=== PATIENT | male | born 1955 | race Two or more races ===

== ENCOUNTER 2016-04-06 19:55 | Inpatient (IN) | payer MEDICARE, MEDICAID ==
[~2016-04-06] VITALS: Ht 170.2 cm; Wt 96.7 kg
[2016-04-06 20:32] LABS: Basophils # (auto) 0 uL; Basophils % (auto) 0.3 % (0.0-2.0); Eosinophils # (auto) 0.5 uL; Eosinophils % (auto) 6.6 % (0.0-7.0); Hematocrit 36.3 % (41.0-53.0); Lymphocytes # (auto) 1.5 uL; Lymphocytes % (auto) 21.5 % (10.0-50.0); Mean Corpuscular Hemoglobin 31.9 pg (28.0-32.0); Mean Corpuscular Volume 96.8 fL (80.0-100.0); Mean Platelet Volume 7.4 fL (7.4-10.4); Monocytes # (auto) 0.5 uL; Monocytes % (auto) 7.2 % (0.0-12.0); Neutrophils # (auto) 4.6 uL; Neutrophils % (auto) 64.4 % (37.0-80.0); Nucleated Red Blood Cells % 2.6 %; Platelet Count (auto) 283 10^3/uL (140-450); Red Cell Distribution Width 13.2 % (11.6-16.0); White Blood Cell 7.2 10^3/uL (4.4-10.8)
[2016-04-06 20:54] LABS: Albumin 3.1 g/dL (3.4-5.0); Calcium 7.5 mg/dL (8.5-10.1); Magnesium 2.1 mg/dL (1.6-2.6); Potassium 3.5 mmol/L (3.5-5.1)
[2016-04-06 20:57] LABS: Bilirubin, Total 0.3 mg/dL (0.2-1.0); Total Protein 6.8 g/dL (6.4-8.2)
[2016-04-06] MEDS ORDERED: ASPirin 81 mg TAB PO ONE (21:00)
[2016-04-06] MEDS ORDERED: ASPirin 81 mg TAB ONE (21:05)
[2016-04-06] MEDS ORDERED: NITROGLYCERIN 0.4 MG SL TAB SL PRN (23:30)
[2016-04-06] MEDS ORDERED: LACTULOSE 20Gm/30ML SOLN PO PRN (23:30)
[2016-04-06] MEDS ORDERED: MORPHINE SULF INJ 2 MG/ML SYRINGE 1ML IV PRN (23:30)
[2016-04-06] MEDS ORDERED: DEXTROSE (50%) 50ML SYRG IV PRN (23:30)
[2016-04-07] VITALS (7 sets, daily range): BP systolic 101–133; BP diastolic 51–68
[2016-04-07] MEDS: SODIUM CHLOR 0.9% PF (SALINE LOCK) 10ML VIAL IV SCH ×3 (05:59→22:57)
[2016-04-07] MEDS: ACCU-CHEK COMFORT CURVE STRIP VI SCH ×4 (06:17→17:44)
[2016-04-07] MEDS: InsuLIN REG 1unit/0.01ml Soln (100units/ml) SC SCH ×4 (06:22→17:47)
[2016-04-07 07:18] LABS: Albumin 3.2 g/dL (3.4-5.0); BUN/Creatinine Ratio 6.3; Bilirubin, Total 0.3 mg/dL (0.2-1.0); Calcium 7.9 mg/dL (8.5-10.1); Potassium 4.2 mmol/L (3.5-5.1); Total Protein 6.4 g/dL (6.4-8.2)
[2016-04-07 07:43] LABS: Basophils # (auto) 0 uL; Basophils % (auto) 0.6 % (0.0-2.0); Eosinophils # (auto) 0.6 uL; Eosinophils % (auto) 7.6 % (0.0-7.0); Hematocrit 34.7 % (41.0-53.0); Hemoglobin 11.3 g/dL (13.5-17.5); Lymphocytes # (auto) 1.2 uL; Lymphocytes % (auto) 17.2 % (10.0-50.0); Mean Corpuscular Hemoglobin 31.7 pg (28.0-32.0); Mean Corpuscular Hgb Conc. 32.6 g/dL (32.0-36.0); Mean Corpuscular Volume 97.3 fL (80.0-100.0); Mean Platelet Volume 7.6 fL (7.4-10.4); Monocytes # (auto) 0.6 uL; Monocytes % (auto) 8.7 % (0.0-12.0); Neutrophils # (auto) 4.8 uL; Neutrophils % (auto) 65.9 % (37.0-80.0); Platelet Count (auto) 262 10^3/uL (140-450); Red Cell Distribution Width 12.9 % (11.6-16.0); White Blood Cell 7.3 10^3/uL (4.4-10.8)
[2016-04-07] MEDS: PANTOPRAZOLE SODIUM 40 MG/10 ML VIAL IV SCH (09:48)
[2016-04-07] MEDS: NITROGLYCERIN 0.2MG/HR TOPICAL PATCH TD SCH (09:48)
[2016-04-07] MEDS: ENOXAPARIN SOD 30 MG/0.3 ML SYRINGE SC SCH (09:48)
[2016-04-07] MEDS: ISOSORBIDE MONONITRATE 60 MG TAB PO SCH (09:50)
[2016-04-07] MEDS: CLOPIDOGREL BISULFATE 75 MG TAB PO SCH (09:50)
[2016-04-07] MEDS: ASPirin 81 mg TAB PO SCH (09:52)
[2016-04-07] MEDS: METOPROLOL TARTRATE 25 MG TAB PO SCH ×2 (09:54→22:58)
[2016-04-07] MEDS: SEVELAMER 800 MG TAB PO SCH ×3 (09:58→17:44)
[2016-04-07] MEDS ORDERED: amLODIPine BESYLATE 5 MG TAB PO SCH (10:00)
[2016-04-07] MEDS ORDERED: LOSARTAN POTASSIUM 25 MG TAB PO SCH (10:00)
[2016-04-07] MEDS ORDERED: ENALAPRIL MALEATE 10 MG TAB PO SCH (10:00)
[2016-04-07] MEDS ORDERED: SODIUM CHL 0.9% 1000 ML BAG XX ONE (12:45)
[2016-04-07] MEDS ORDERED: ATORVASTATIN 20 MG TAB PO SCH (22:00)
[2016-04-08] MEDS: ACCU-CHEK COMFORT CURVE STRIP VI SCH ×4 (00:38→18:02)
[2016-04-08] MEDS: InsuLIN REG 1unit/0.01ml Soln (100units/ml) SC SCH ×4 (00:46→18:15)
[2016-04-08 05:00] VITALS: BP 114/66
[2016-04-08] MEDS: SODIUM CHLOR 0.9% PF (SALINE LOCK) 10ML VIAL IV SCH ×2 (06:01→15:26)
[2016-04-08 08:00] VITALS: BP 124/69
[2016-04-08] MEDS: SEVELAMER 800 MG TAB PO SCH ×3 (08:00→18:01)
[2016-04-08] MEDS ORDERED: ADENOSINE 81 MG in GIVE UN-DILUTED 0 ML IV ONE (08:15)
[2016-04-08 09:25] VITALS: BP 124/69
[2016-04-08] MEDS: ENOXAPARIN SOD 30 MG/0.3 ML SYRINGE SC SCH (10:00)
[2016-04-08] MEDS: ASPirin 81 mg TAB PO SCH (10:00)
[2016-04-08] MEDS: ISOSORBIDE MONONITRATE 60 MG TAB PO SCH (10:00)
[2016-04-08] MEDS: NITROGLYCERIN 0.2MG/HR TOPICAL PATCH TD SCH (10:00)
[2016-04-08] MEDS ORDERED: ENALAPRIL MALEATE 10 MG TAB PO SCH (10:00)
[2016-04-08] MEDS ORDERED: amLODIPine BESYLATE 5 MG TAB PO SCH (10:00)
[2016-04-08] MEDS: METOPROLOL TARTRATE 25 MG TAB PO SCH (10:00)
[2016-04-08] MEDS ORDERED: SEVE800T8 PO (11:58)
[2016-04-08] MEDS ORDERED: ATOR80TA PO (11:58)
[2016-04-08] MEDS ORDERED: AMLO10TA2 PO (11:58)
[2016-04-08] MEDS ORDERED: PANT40TA2 PO (11:58)
[2016-04-08] MEDS ORDERED: CLOP75TA41 PO (11:58)
[2016-04-08] MEDS ORDERED: LEVEMIR SC (11:58)
[2016-04-08 13:42] VITALS: BP 120/72
[2016-04-08 13:56] VITALS: BP 120/72
[2016-04-08 17:20] VITALS: BP 130/70
[2016-04-08] MEDS: CLOPIDOGREL BISULFATE 75 MG TAB PO SCH (18:02)
[2016-04-08] MEDS: PANTOPRAZOLE SODIUM 40 MG/10 ML VIAL IV SCH (18:02)
== END 2016-04-08 20:15 | disposition home or self-care (01) | DRG 302 ==
LOC: EDBD 19:55 → ER 20:00 → TELE 20:01 → TELE-EAST 23:42
PROVIDERS: ADMIT Family Medicine; ATTEND Internal Medicine
PROC: 5A1D00Z (ICD-10-PCS; principal; 2016-04-08)
DX: I25.10 Atherosclerotic heart disease of native coronary artery without angina pectoris (principal); N18.6 End stage renal disease; I12.0 Hypertensive chronic kidney disease with stage 5 chronic kidney disease or end stage renal disease; R07.89 Other chest pain; E78.5 Hyperlipidemia, unspecified; E11.22 Type 2 diabetes mellitus with diabetic chronic kidney disease; Z95.5 Presence of coronary angioplasty implant and graft; Z98.890 Other specified postprocedural states; I25.2 Old myocardial infarction; Z99.2 Dependence on renal dialysis
CPT/HCPCS: 36415; 71010; 78452; 80053; 80061; 82962; 83036; 83735; 84484; 85025; 90935; 93005; 93017; 94761; C9113; J0153; J1815